=== PATIENT | female | born 1995 | race Two or more races ===

== ENCOUNTER 2022-06-13 11:56 | Emergency (ER) | payer OTHER ==
[~2022-06-13] VITALS: Ht 160 cm; Wt 58.1 kg
[2022-06-13 11:56] VITALS: BP 106/53
--- NOTE | 2022-06-13 11:56 | NUR ---
right ankle pain and swelling x last night, twisted the ankle while dancing
--- NOTE | 2022-06-13 14:14 | NUR ---
Patient discharged to home in stable condition. Written and verbal after care instructions given. Patient verbalizes understanding of instruction.
== END 2022-06-13 14:19 | disposition home or self-care (01) ==
LOC: ER 12:13
DX: S93.401A Sprain of unspecified ligament of right ankle, initial encounter (principal); X50.1XXA Overexertion from prolonged static or awkward postures, initial encounter; Y93.89 Activity, other specified; Y92.89 Other specified places as the place of occurrence of the external cause; Y99.8 Other external cause status
CPT/HCPCS: 73610-TC